=== PATIENT | female | born 1980 | race African-American/Black ===

== ENCOUNTER 2021-03-14 16:14 | Emergency (ER) | payer OTHER, MEDICAID ==
[~2021-03-14] VITALS: Ht 170.2 cm; Wt 80.0 kg
[2021-03-14] MEDS ORDERED: ONDANSETRON 4MG ODT PO STA (18:55)
[2021-03-14] MEDS ORDERED: ACETAMINOPHEN 325MG TABLET PO ONE (19:15)
[2021-03-14 19:17] LABS: HEMATOCRIT. 43.3 % (36.0-48.0); HEMOGLOBIN. 15.1 g/dL (12.0-16.0); MEAN CORPUSCULAR VOLUME 88.8 fL (81.0-99.0); MEAN PLATELET VOLUME 8.6 fl (7.4-10.4); PLATELET 247 x1000/uL (130-400); RED BLOOD CELL COUNT 4.88 mill/uL (4.2-5.4); RED CELL DISTRIBUTION WIDTH 13.2 % (11.6-14.6)
[2021-03-14 19:22] LABS: CHLORIDE 93 mEq/L (98-107)
[2021-03-14 19:39] LABS: CLARITY URINE TURBID (CLEAR); COLOR URINE YELLOW (YELLOW); KETONES URINE 1+ (NEGATIVE); LEUKOCYTE ESTERASE URINE 2+ (NEGATIVE); NITRITE URINE NEGATIVE (NEGATIVE); OCCULT BLOOD URINE 2+ (NEGATIVE); PROTEIN URINE 2+ (NEGATIVE); SPECIFIC GRAVITY URINE 1.021 (1.005-1.030)
[2021-03-14 20:05] LABS: PLATELET ESTIMATE NORMAL
[2021-03-14] MEDS ORDERED: NITR-87 MT (21:13)
[2021-03-14] MEDS ORDERED: NITROFURANTOIN 100MG M/M CAPSULE PO NR (21:15)
[2021-03-14 21:27] VITALS: BP 137/93
== END 2021-03-14 21:29 | disposition home or self-care (01) ==
LOC: ER 16:14
DX: N39.0 Urinary tract infection, site not specified (principal); I10 Essential (primary) hypertension; E11.9 Type 2 diabetes mellitus without complications; Z86.59 Personal history of other mental and behavioral disorders
CPT/HCPCS: 36415; 76700; 80053; 81003; 82962; 83690; 85025; 87086; 99284; Q0162

== ENCOUNTER 2021-04-16 12:41 | Emergency (ER) | payer OTHER, MEDICAID ==
[~2021-04-16] VITALS: Ht 167.6 cm; Wt 68.0 kg
[~2021-04-16 12:41] MED LIST: NITR-87 MT
[2021-04-16 12:44] VITALS: BP 138/89
[2021-04-16] MEDS ORDERED: HYDROCODONE/ACETAMINOPHEN 5/325MG TABLET PO ONE (13:00)
[2021-04-16] MEDS ORDERED: ACETAMINOPHEN 325MG TABLET PO ONE (13:15)
== END 2021-04-16 14:04 | disposition home or self-care (01) ==
LOC: ER 12:41
DX: R51.9 Headache, unspecified (principal); Y08.89XA Assault by other specified means, initial encounter; Y93.89 Activity, other specified; Y92.89 Other specified places as the place of occurrence of the external cause; Y99.8 Other external cause status; J45.909 Unspecified asthma, uncomplicated; E11.9 Type 2 diabetes mellitus without complications; I10 Essential (primary) hypertension
CPT/HCPCS: 70486; 99285

== ENCOUNTER 2021-09-26 19:05 | Emergency (ER) | payer OTHER, MEDICAID ==
[~2021-09-26] VITALS: Ht 162.6 cm; Wt 70.0 kg
[2021-09-26] MEDS ORDERED: GABAPENTIN 100MG CAPSULE PO ONE (20:15)
[2021-09-26] MEDS ORDERED: KETOROLAC 60MG/2ML VIAL IM ONE (20:15)
[2021-09-26] MEDS ORDERED: HYDROCODONE/ACETAMINOPHEN 5/325MG TABLET PO ONE (20:15)
[2021-09-26] MEDS ORDERED: GABA-529 MT (20:58)
[2021-09-26] MEDS ORDERED: IBUP-2028 MT (20:58)
[2021-09-26 21:17] VITALS: BP 129/74
== END 2021-09-26 21:17 | disposition home or self-care (01) ==
LOC: ER 19:05
DX: G62.9 Polyneuropathy, unspecified (principal); M62.838 Other muscle spasm; J45.909 Unspecified asthma, uncomplicated; E11.9 Type 2 diabetes mellitus without complications; I10 Essential (primary) hypertension
CPT/HCPCS: 99283; J1885